=== PATIENT | male | born 1970 | race Caucasian/White ===

== ENCOUNTER 2016-11-16 14:31 | Observation (INO) | payer OTHER ==
[~2016-11-16] VITALS: Ht 170.2 cm; Wt 85.4 kg
--- NOTE | 2016-11-16 17:38 | ED NURSING NOTES ---
Clinical Report - Nurses [facility] [address] [place] [address] 11/16/2016 14:33 Patient: BRIANNA NEAL TRIAGE Triage time 1444. Acuity: LEVEL 3. Chief Complaint: ABDOMINAL PAIN and NAUSEA. Alert. VERTIO COMA SCORE: Verito Coma Scale: 15- eyes open spontaneously (4); best verbal response- oriented x 4 (5); best motor response- obeys commands (6). --14:56 Gretchen Alejandra R.N. 14:50 11/16/16. BP: 142/115. HR: 80. RR: 20. O2 saturation: 98%. Temp: 98.3 F. Pain level now 5/10. --14:56 Gretchen Alejandra R.N. Weight: 83.9 kg. Height/Length: 67 inches Per Patient. BMI: 29. --14:55 Gretchen Alejandra R.N. Medications None. --14:53 Gretchen Alejandra R.N. Allergies NKDA. --14:53 Gretchen Alejandra R.N. Medication/allergy information source: the patient and patient's family. --14:56 Gretchen Alejandra R.N. History Arrived by private vehicle. Historian: family. Accompanied by family. Primary physician (none). Onset. (Monday). ( Onset abd pain, N/V on Monday, pain and nausea cont. Last emesis 299. Same thing happens randomly over last year or two. Last BM small in a.m). Last oral intake by patient was (able to keep fluids down now). 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 SOCIAL HX: Recent travel in the last week- [facility] (1 ago). FALL RISK ASSESSMENT: Fall risk assessment completed. No fall risk identified. NUTRITIONAL RISK ASSESSMENT: The nutritional risk assessment revealed no deficiencies. FUNCTIONAL ASSESSMENT: Functional assessment: no impairments noted. LEARNING NEEDS ASSESSMENT: The learning needs assessment revealed no barriers. SKIN INTEGRITY ASSESSMENT: Skin integrity risk assessment completed. No skin integrity risk identified. --14:56 Gretchen Alejandra R.N. PAST MEDICAL HX: Immunizations: up-to-date. SOCIAL HX: Current every day light tobacco smoker- less than 1/2 a pack per day. Alcohol use. History of drug use: marijuana. No infectious disease exposure. ABUSE ASSESSMENT: No report of abuse. SELF HARM ASSESSMENT: A self harm assessment was performed. The patient answered "no" to the question "Do you have thoughts of harming or killing yourself?" and "Are you here because you tried to hurt yourself?". --15:05 Gretchen Alejandra R.N. PROBLEMS: Seasonal allergic rhinitis. --15:04 Gretchen Alejandra R.N. ADDITIONAL SURGERIES: Tonsillectomy. --14:53 Gretchen Alejandra R.N. Interventions ID band on patient. To treatment room. --14:56 Gretchen Alejandra R.N. PHYSICAL ASSESSMENT Ambulatory to room. GENERAL / NEURO / PSYCH: Alert. Oriented X 4. Appears anxious. RESPIRATORY: Respirations not labored. SKIN: Skin is warm and dry. --14:57 Gretchen Alejandra R.N. ( cramping, belching). GI / : The patient has had nausea. No abdominal tenderness. --15:02 Gretchen Alejandra R.N. NURSING PROGRESS NOTES 14:46 11/16/2016 Site #1 started via IV in the left antecubital space with an 20g angiocath, with aseptic technique and good blood return; one attempt. Blood drawn: rainbow set. Labeled in the presence of the patient and sent to the lab. Saline lock flushed with 10 mL saline. --14:56 Juma Rubi R.N. 14:51 11/16/2016 Started bag #1 1000 mL IV Fluids IV NS (Saline); at 1000 mL/hr over 1 hour(s) via site #1. Allergies verified and confirmed 5 rights. IV patency established. IV site checked: no pain, redness, or swelling. IV flushed thoroughly pre- and post-medication administration. Completed per protocol. --14:57 Juma Rubi R.N. 14:57 11/16/2016 Zofran (Ondansetron HCl) IVP 8 mg given over 3 minute(s) via site #1. Allergies verified and confirmed 5 rights. IV patency established. IV site checked: no pain, redness, or swelling. IV flushed thoroughly pre- and post-medication administration. IVP given by RN. --14:57 Juma Rubi R.N. Patient gowned. Head of bed elevated. Reassurance given. Two patient identifiers checked. Call light placed in reach. Side rails up x 2. Bed placed in lowest position. Brakes of bed on. Patient ready for evaluation- chart flagged. ED physician notified. --15:05 Gretchen Alejandra R.N. 15:57 11/16/2016 Dilaudid (HYDROmorphone HCl PF) IVP 1 mg given. via site #1. Allergies verified, confirmed 5 rights and sedative warning given to the patient. IV patency established. IV site checked: no pain, redness, or swelling. IV flushed thoroughly pre- and post-medication administration. IVP given by RN. --16:02 Gretchen Alejandra R.N. 16:30 11/16/16. --16:30 Juma Rubi R.N. 16:29 11/16/16. BP: 179/80. HR: 67. RR: 14. O2 saturation: 97% on room air. --16:30 Juma Rubi R.N. 16:30 11/16/16. ( US at bedside). --16:30 Juma Rubi R.N. 17:55 11/16/2016 Started bag #1 1000 mL IV Fluids IV NS (Saline); at 999 mL/hr via site #1 via IV pump. Allergies verified and confirmed 5 rights. IV patency established. IV site checked: no pain, redness, or swelling. IV flushed thoroughly pre- and post-medication administration. --17:55 Gretchen Alejandra R.N. 18:12 11/16/2016 PHENERGAN (Promethazine HCl) IVP 12.5 mg given. via site #1. Allergies verified and confirmed 5 rights. IV patency established. IV site checked: no pain, redness, or swelling. IV flushed thoroughly pre- and post-medication administration. IVP given by RN. --18:22 Gretchen Alejandra R.N. 18:17 11/16/2016 PROTONIX 40MG (Pantoprazole Sodium) IVP 40 mg given. via site #1. Allergies verified and confirmed 5 rights. IV patency established. IV site checked: no pain, redness, or swelling. IV flushed thoroughly pre- and post-medication administration. IVP given by RN. --18:22 Gretchen Alejandra R.N. 18:17 11/16/2016 GI COCKTAIL WHITE (Simethicone) PO 30 mL given. Allergies verified and confirmed 5 rights. (15 ml viscous lidocaine and 15 ml maalox). --18:28 Gretchen Alejandra R.N. 18:21 11/16/2016 Started 2 gm of CEFOTETAN IVPB in bag #1 50 mL; at 100 mL/hr via site #1 via IV pump. Allergies verified and confirmed 5 rights. IV patency established. IV site checked: no pain, redness, or swelling. IV flushed thoroughly pre- and post-medication administration. --18:21 Gretchen Alejandra R.N. 18:00 11/16/16. BP: 175/94 (regular adult cuff) taken on the left arm, while sitting. HR: 69. RR: 18. O2 saturation: 97%. Temp: 99.3 F. Pain level now: 3/10. 17:40 11/16/16. BP: 192/103. HR: 71. RR: 20. O2 saturation: 98%. 17:00 11/16/16. BP: 157/81. HR: 63. O2 saturation: 95%. 16:00 11/16/16. BP: 181/106. HR: 68. O2 saturation: 95%. 15:30 11/16/16. BP: 196/111. HR: 73. RR: 20. O2 saturation: 96%. 14:50 11/16/16. BP: 142/115. HR: 80. RR: 20. O2 saturation: 98%. Temp: 98.3 F. Pain level now 5/10. --18:36 Gretchen Alejandra R.N. 19:21 11/16/16. BP: 203/106. --19:30 Gretchen Alejandra R.N. ( reported rising blood pressure to ED MD, no orders given. Deferred to admit or surgeon. Patient asymptomatic with 3/10 pain.). --19:30 Gretchen Alejandra R.N. 18:55 11/16/2016 CEFOTETAN IVPB Discontinued: bag #1 completed upon admission. Total amount infused: 50 mL. IV patency established. IV site checked: no pain, redness, or swelling. IV flushed thoroughly. --19:35 Gretchen Alejandra R.N. 19:00 11/16/2016 IV Fluids IV NS Discontinued: bag #2 completed upon admission. Total amount infused: 1000 mL. IV patency established. IV site checked: no pain, redness, or swelling. IV flushed thoroughly. --19:34 Gretchen Alejandra R.N. 19:28 11/16/2016 IV Fluids IV NS Continued: upon admission at the rate of 0 mL/hr. 0 mL remaining bag #1. IV patency established. IV site checked: no pain, redness, or swelling. IV flushed thoroughly. --19:34 Gretchen Alejandra R.N. DISPOSITION / DISCHARGE Departure time: 1927. Admitted to Acute Care (1927). Transported via stretcher by Imindi. Report was given to a nurse. Report included patient's care, treatment, medications, reviewed medication reconcilliation, and condition (including any recent changes or anticipated changes). All questions were answered. Report was acknowledged and care was transferred. (Christal BURR). Patient's personal items include, belongings bad on stretcher with patient. --19:32 Gretchen Alejandra R.N. 19:28 11/16/16. BP: 203/106. HR: 76. RR: 18. O2 saturation: 94%. Temp: deferred. Pain level now: 07/22. --19:32 Gretchen Alejandra R.N. Locked/Released at 11/16/2016 19:36 by Gretchen Alejandra R.N.
--- NOTE | 2016-11-16 17:38 | ED ORDER SUMMARY ---
..... Patient: BRIANNA NEAL OrderSheet [facility] VisitID: [id number] [place] [address] 46y, M Registration Date/Time: 11/16/2016 ORDER SHEET Weight: 83.9 kg Allergies: NKDA GENERAL ORDERS: CBC w Diff Urgent (15:06 11/16/2016 LAbe R.N. per protocol) (Ack 15:07 Melvanandez) (16:29 JBoardley R.N.) CMP Urgent (15:11/16/2016 LAbe R.N. per protocol) (Ack 15:07 Melvanandez) (16:29 JBoardley R.N.) UA-Culture if indicated Urgent (15:06 11/16/2016 LAbe R.N. per protocol) (Ack 15:07 Khadar) (18:28 LAbe R.N.) Amylase Urgent (15:11/16/2016 LAbe R.N. per protocol) (Ack 15:07 Khadar) (16:29 JBoardley R.N.) Lipase Urgent (15:06 11/16/2016 LAbe R.N. per protocol) (Ack 15:07 Khadar) (16:29 JBoardley R.N.) US Abdomen Limited (Yes) Urgent (16:08 11/16/2016 Agnes HINKLE) (Ack 16:11 Khadar) (16:29 JBoardley R.N.) MEDICATION ORDERS: Phenergan IV 12.5 mg (HIGH ALERT MEDICATION, NOW) (17:41 11/16/2016 Agnes HINKLE) (18:22 LAbe R.N.) GI Cocktail WHITE PO 30 mL with Lidocaine Viscous Mouth/Throat 15 mL, Maalox Plus Oral 15 mL (17:49 11/16/2016 Agnes HINKLE) (18:28 LAbe R.N.) IV FLUIDS: IV NS : initial bolus 1000 mL (1000 mL/hr), then none - (NOW) (14:55 11/16/2016 Agnes HINKLE) (14:57 JBoardley R.N.) Zofran IV 8 mg (NOW) (14:55 11/16/2016 Agnes HINKLE) (14:57 JBoardley R.NCheryl) Dilaudid IV 1 mg (HIGH ALERT MEDICATION, NOW) (15:51 11/16/2016 Agnes HINKLE) (Ack 15:53 LAbe R.N.) (16:02 LAbe R.N.) Cefotetan IV 2 gm (NOW) (17:38 11/16/2016 Agnes HINKLE) (18:21 LAbe R.N.) Protonix IVP 40mg 40 mg (Mix in NS 10ml over 2min) (17:41 11/16/2016 Agnes HINKLE) (18:22 LAbe R.N.) IV NS : initial bolus 1000 mL (1000 mL/hr), then none - (NOW) (17:49 11/16/2016 Agnes HINKLE) (17:55 LAbe R.N.) ORDER SHEET NOTES: [Electronically signed by Gretchen Alejandra R.N. (19:36 11/16/2016)] [Electronically signed by June Harris MD (04:37 11/18/2016)] [Electronically locked/signed by Gretchen Alejandra R.N. (19:36 11/16/2016)]
--- NOTE | 2016-11-16 17:38 | ED ORDER SUMMARY ---
..... Patient: BRIANNA NEAL OrderSheet [facility] VisitID: [id number] [place] [address] 46y, M Registration Date/Time: 11/16/2016 ORDER SHEET Weight: 83.9 kg Allergies: NKDA GENERAL ORDERS: CBC w Diff Urgent (15:06 11/16/2016 LAbe R.N. per protocol) (Ack 15:07 Melvanandez) (16:29 JBoardley R.N.) CMP Urgent (15:11/16/2016 LAbe R.N. per protocol) (Ack 15:07 Melvanandez) (16:29 JBoardley R.N.) UA-Culture if indicated Urgent (15:06 11/16/2016 LAbe R.N. per protocol) (Ack 15:07 Khadar) (18:28 LAbe R.N.) Amylase Urgent (15:11/16/2016 LAbe R.N. per protocol) (Ack 15:07 Khadar) (16:29 JBoardley R.N.) Lipase Urgent (15:06 11/16/2016 LAbe R.N. per protocol) (Ack 15:07 Khadar) (16:29 JBoardley R.N.) US Abdomen Limited (Yes) Urgent (16:08 11/16/2016 Agnes HINKLE) (Ack 16:11 Khadar) (16:29 JBoardley R.N.) MEDICATION ORDERS: Phenergan IV 12.5 mg (HIGH ALERT MEDICATION, NOW) (17:41 11/16/2016 Agnes HINKLE) (18:22 LAbe R.N.) GI Cocktail WHITE PO 30 mL with Lidocaine Viscous Mouth/Throat 15 mL, Maalox Plus Oral 15 mL (17:49 11/16/2016 Agnes HINKLE) (18:28 LAbe R.N.) IV FLUIDS: IV NS : initial bolus 1000 mL (1000 mL/hr), then none - (NOW) (14:55 11/16/2016 Agnes HINKLE) (14:57 JBoardley R.N.) Zofran IV 8 mg (NOW) (14:55 11/16/2016 Agnes HINKLE) (14:57 JBoardley R.NCheryl) Dilaudid IV 1 mg (HIGH ALERT MEDICATION, NOW) (15:51 11/16/2016 Agnes HINKLE) (Ack 15:53 LAbe R.N.) (16:02 LAbe R.N.) Cefotetan IV 2 gm (NOW) (17:38 11/16/2016 Agnes HINKLE) (18:21 LAbe R.N.) Protonix IVP 40mg 40 mg (Mix in NS 10ml over 2min) (17:41 11/16/2016 Agnes HINKLE) (18:22 LAbe R.N.) IV NS : initial bolus 1000 mL (1000 mL/hr), then none - (NOW) (17:49 11/16/2016 Agnes HINKLE) (17:55 LAbe R.N.) ORDER SHEET NOTES: [Electronically signed by Gretchen Alejandra R.N. (19:36 11/16/2016)] [Electronically signed by June Harris MD (04:37 11/18/2016)] [Electronically locked/signed by Gretchen Alejandra R.N. (19:36 11/16/2016)]
--- NOTE | 2016-11-16 17:38 | ED CLINICAL REPORT ---
Clinical Report - Physicians/Mid Levels [facility] [address] [address] 11/16/2016 14:33 Patient: BRIANNA NEAL Time Seen: 14:40. Arrived- By private vehicle. Historian- patient. HISTORY OF PRESENT ILLNESS Chief Complaint: VOMITING. ABDOMINAL CRAMPS. This started about 2 days ago and is still present. No recent travel. He has had nausea and moderate abdominal pain. The pain is described as located in the upper abdomen. He has had vomiting (last vomiting was yesterday). No constipation, flank pain, history of possible bad food exposure or known contact with a sick individual. Has not recently been camping or on antibiotics. The illness is described as moderate. Similar symptoms previously: ( Patient states he's been having symptoms like this for the past 17 years; however it was usually once a year but now it has been about every 3 months for the past year. Patient has no family history of gallbladder disease, and no personal history of peptic ulcer disease.). Recent medical care: Not recently seen/assessed. REVIEW OF SYSTEMS No fever, muscle aches, difficulty with urination, dark urine or headache. No dizziness, sore throat, cough, chest pain or difficulty breathing. No excessive urination, skin rash, jaundice, back pain or fainting episodes. No blurred vision. All systems otherwise negative, except as recorded above. PAST HISTORY Problems: Seasonal allergic rhinitis. Additional Surgeries: Tonsillectomy. Medications: None. Allergies: NKDA. SOCIAL HISTORY Never smoker. No alcohol use or drug use. ADDITIONAL NOTES The nursing notes have been reviewed. PHYSICAL EXAM Vital Signs: 11/16/2016 14:50 BP: 142/115. HR: 80. RR: 20. O2 saturation: 98%. Temp: 98.3 F. Have been reviewed. Appearance: Alert. Oriented X3. No acute distress. (Patient appears mildly uncomfortable.). Eyes: Pupils equal, round and reactive to light. Eyes normal inspection. ENT: Nose normal. Neck: Normal inspection. CVS: Normal heart rate and rhythm. Heart sounds normal. Pulses normal. Respiratory: No respiratory distress. Breath sounds normal. Abdomen: Soft. Mild tenderness in the upper abdomen. No guarding or rebound tenderness. Back: Normal inspection. No CVA tenderness. Skin: Skin warm and dry. Normal skin color. No rash. Normal skin turgor. Extremities: Extremities exhibit normal ROM. No lower extremity edema. Neuro: No motor deficit. No sensory deficit. (Grossly intact.). LABS, X-RAYS, AND EKG Abdominal Sonogram: Gallstones are present. Gallbladder wall thickening is present. Pericholecystic fluid is present. Normal liver. No free fluid. The study was independently viewed by me, interpreted contemporaneously by me, discussed with the radiologist and limited due to artifact. Study included the gallbladder and upper abdomen. Prior studies were not available for comparison. Laboratory Tests: CBC w Diff: (CONNOR: 11/16/2016 14:45) ( [facility] [place]) Final results Test Result Flag Units (Reference) WHITE BLOOD COUNT 16.5 H K/uL (4.5-11.5) RED BLOOD COUNT 5.73 M/uL (4.50-5.90) HEMOGLOBIN 17.7 H gm/dL (13.5-17.5) HEMATOCRIT 52.0 % (41.0-53.0) MEAN CELL VOLUME 91 fL (80-100) MEAN CORPUSCULAR HGB 31 pg (26-34) MEAN CORPUSCULAR HGB CONC 34 g/dL (31-37) RED CELL DISTRIBUTION WIDTH 12.6 % (11.6-14.8) PLATELET COUNT 226 K/uL (150-400) NEUTROPHIL % 89.2 H % (50-75) LYMPH % 8.3 L % (25-40) MONO % 2.3 L % (3-14) EOSINOPHIL % 0 % (0-4) BASOPHIL % 0.2 % (0-2) CMP: (CONNOR: 11/16/2016 14:45) ( MsgRcvd 11/16/2016 15:56) Final results Test Result Flag Units (Reference) GLUCOSE 137 H mg/dL (70-110) BUN 25 H mg/dL (7-18) CREATININE 1.2 mg/dL (0.6-1.3) Estimated GFR >60 mL/min Estimated GFR- >60 mL/min Note: Persistent reduction over 3 months in eGFR<60 mL/min/1.73 m2 defines CKD. Patients with eGFR values>=60 mL/min/1.73 m2 may also have CKD if evidence ofpersistent proteinuria. Additional information may be foundat www.kidney.org. SODIUM 141 mmol/L (136-145) POTASSIUM 3.7 mmol/L (3.5-5.1) CHLORIDE 101 mmol/L (98-107) CARBON DIOXIDE 25 mmol/L (21-32) CALCIUM 10.7 H mg/dL (8.5-10.1) TOTAL PROTEIN 8.5 H g/dL (6.4-8.2) ALBUMIN 5.1 H g/dL (3.3-5.0) BILIRUBIN, TOTAL 2.9 H mg/dL (0.0-1.0) ALKALINE PHOSPHATASE 66 U/L (46-116) AST (SGOT) 42 H U/L (15-37) ALT (SGPT) 46 U/L (12-78) LIPASE 119 U/L (73-393) AMYLASE 34 U/L (25-115) . Pulse Oximetry: 11/16/2016 14:50 O2 saturation: 98%. (FIO2 - room air). Interpretation: normal. PROGRESS AND PROCEDURES Course of Care: Patient was treated symptomatically for his pain and nausea with IV fluids, Zofran, and Dilaudid. He was worked up with labs which showed a leukocytosis and an elevated AST, and an ultrasound. Ultrasound did show cholecystitis. Patient was started on cefotetan IV for this and I did admit him to the surgical service. Discussed case with on-call health care provider, (Sherri/surgery). Reviewed test results and need for additional work-up. Agreed upon treatment plan and decision to admit. Health care provider will see patient in ED. Refers case to other health care provider. Patient and spouse counseled in person several times regarding the patient's stable condition, test results, diagnosis and need for follow-up. Concerns were addressed. Old medical records reviewed. Disposition: Admitted to Acute Care. Condition: stable and serious. CLINICAL IMPRESSION Acute cholecystitis with cholelithiasis. No obstruction or choledocholithiasis. (Electronically signed by June Harris MD 11/18/2016 4:37)
--- NOTE | 2016-11-16 18:08 | DIAGNOSTIC IMAGING REPORT ---
PROCEDURE: US ABDOMEN ULTRASOUND-LIMITED INDICATION: RUQ PAIN TECHNIQUE: Carcamo scale and color Doppler sonographic images of the abdomen were obtained. COMPARISON: None. FINDINGS: Multiple small mobile gallstones and sludge, thickened gallbladder wall (4.6 mm) and positive Boykin's sign. Normal CBD measures 4.3 mm. Normal liver. Visualized pancreas is unremarkable. Aorta and IVC are patent. Normal hepatopetal flow. Normal right kidney measures 11.3 cm. IMPRESSION: 1. Cholelithiasis with findings suggestive of acute cholecystitis
[2016-11-16 19:42] VITALS: BP 181/110
--- NOTE | 2016-11-16 20:03 | NUR ---
PT ARRIVED TO FLOOR VIA GURNEY, PUT OWN SOCKS ON AND AMBULATED TO BED WITHOUT ISSUE. PAIN 5/10 AND THIS RN ADMIN 1MG DILAUDID. DENIED NAUSEA. BT HYPOACTIVE, NO SOB. ELEVATED BP 181/110 AND ASYMPTOMATIC. WILL TAKE AGAIN IN 15 MIN POST PAIN ADVISOR TO COMMAND IN COMBAT. CALLED MD ROSARIO TO NOTIFY, ALSO TO ASK FOR ORDERS. PT FELL ASLEEP PRIOR TO LEAVING ROOM. ALISIA.
[2016-11-16 21:32] VITALS: BP 141/76
--- NOTE | 2016-11-16 23:06 | NUR ---
PT IS STILL SLEEPING AND DENIES PAIN. BP IS WNL AND NO ATENOLOL GIVEN. WCTM.
[2016-11-17 00:19] VITALS: BP 147/94
--- NOTE | 2016-11-17 00:33 | NUR ---
Pt. is resting in bed at this time. States abdominal pain is 1/10, declines the need for pain medication at this time. Denies nausea. Resting comfortably at this time. Able to make needs known. Call light within reach. TM.
[2016-11-17 05:40] VITALS: BP 133/83
[2016-11-17 09:52] VITALS: BP 140/94
[2016-11-17 12:10] VITALS: BP 131/85
--- NOTE | 2016-11-17 16:32 | DIAGNOSTIC IMAGING REPORT ---
PROCEDURE: XR INTRAOPERATIVE LAP KARMEN INDICATION: LAP KARMEN WITH IOC TECHNIQUE: Intraoperative fluoroscopy provided for Dr. Polanco performing an intraoperative cholangiogram following cholecystectomy. Total fluoroscopy time 1 minute 9 seconds Cumulative dose 29.2 mGy. COMPARISON: None. FINDINGS: Three intraoperative fluoroscopic spot images of the right upper quadrant of the abdomen demonstrate cannulation of the cystic duct stump and opacification of the extrahepatic common duct with opacification of second portion of the duodenum. Distal common duct was not imaged in this study. IMPRESSION: 1. Partial visualization of distal biliary tree. 2. No filling defects visible in the visualized portion of common duct. 3. Good opacification of the second portion of the duodenum.
[2016-11-17] MEDS ORDERED: NORCO1 TA1 PO (16:33)
--- NOTE | 2016-11-17 16:33 | Provider's Discharge Care Plan ---
Problem, Goal, Plan Problem List 1. Acute cholecystitis
--- NOTE | 2016-11-17 16:33 | Provider's Discharge Care Plan ---
Problem, Goal, Plan Problem List 1. Acute cholecystitis
--- NOTE | 2016-11-17 17:14 | NUR ---
1700HRS ASSUMED CARE FROM AMINAH DELONG. PAIN AWAKE AND ALERT. SITTING UP AT 45 DEGREES. REPORTS PAIN TO BE MODERATE; PAIN MED GIVEN
--- NOTE | 2016-11-17 17:25 | NUR ---
CURRENTLY PATIENT IS IN PACU, RECOVERING FROM A LAP KARMEN. HE WILL D/C TONIGHT AFTER HE RECOVERS FROM THE SURGERY.
[2016-11-17 17:59] VITALS: BP 157/88
[2016-11-17 18:17] VITALS: BP 159/93
--- NOTE | 2016-11-18 04:37 | ED MAR SUMMARY ---
..... Medication Administration Record [facility] [address] [place] [address] Patient: BRIANNA NEAL Visit ID: [id number] 46y, M Weight: 83.9 kg Height/Length: 67 in BMI: 29 ALLERGIES: NKDA Start 14:51 11/16/2016 Juma Rubi R.N., Continued Upon Admission 19:28 11/16/2016 Gretchen Alejandra R.N. Medication Administered: IV NS (SALINE), Dose: IV Fluids over 1 hour(s), Rate: 1000 mL/hr, Dispensed: 1000 mL bag, Site: #1 left AC. Medication Ordered: IV NS : initial bolus 1000 mL (1000 mL/hr), then none - (NOW). Given 14:57 11/16/2016 Juma Rubi R.N. Medication Administered: ZOFRAN [IVP] (ONDANSETRON HCL), Dose: 8 mg IVP over 3 minute(s), Site: #1 left AC. Medication Ordered: Zofran IV 8 mg (NOW). Given 15:57 11/16/2016 Gretchen Alejandra R.N. Medication Administered: DILAUDID [IVP] (HYDROMORPHONE HCL PF), Dose: 1 mg IVP, Site: #1 left AC. Medication Ordered: Dilaudid IV 1 mg (HIGH ALERT MEDICATION, NOW). Start 17:55 11/16/2016 Gretchen Alejandra R.N., Stop 19:00 11/16/2016 Gretchen Alejandra R.N. Medication Administered: IV NS (SALINE), Dose: IV Fluids, Rate: 999 mL/hr, Dispensed: 1000 mL bag, Site: #1 left AC. Medication Ordered: IV NS : initial bolus 1000 mL (1000 mL/hr), then none - (NOW). Given 18:12 11/16/2016 Gretchen Alejandra R.N. Medication Administered: PHENERGAN [IVP] (PROMETHAZINE HCL), Dose: 12.5 mg IVP, Site: #1 left AC. Medication Ordered: Phenergan IV 12.5 mg (HIGH ALERT MEDICATION, NOW). Given 18:17 11/16/2016 Gretchen Alejandra R.N. Medication Administered: GI COCKTAIL WHITE [PO] (SIMETHICONE), Dose: 30 mL PO. Medication Ordered: GI Cocktail WHITE PO 30 mL with Lidocaine Viscous Mouth/Throat 15 mL, Maalox Plus Oral 15 mL. Given 18:17 11/16/2016 Gretchen Alejandra R.N. Medication Administered: PROTONIX 40MG [IVP] (PANTOPRAZOLE SODIUM), Dose: 40 mg IVP, Site: #1 left AC. Medication Ordered: Protonix IVP 40mg 40 mg (Mix in NS 10ml over 2min). Start 18:21 11/16/2016 Gretchen Alejandra R.N., Stop 18:55 11/16/2016 Gretchen Alejandra R.N. Medication Administered: CEFOTETAN [IVPB], Dose: 2 gm IVPB, Rate: 100 mL/hr, Dispensed: 50 mL bag, Site: #1 left AC. Medication Ordered: Cefotetan IV 2 gm (NOW).
--- NOTE | 2016-11-18 04:37 | ED DISCHARGE INSTRUCTIONS ---
Patient: BRIANNA NEAL General Instructions [facility] VisitID: [id number] [address] [place] [address] 46y, M Registration Date/Time: 11/16/2016 Acute cholecystitis with cholelithiasis. No obstruction or choledocholithiasis. (Electronically signed by June Harris MD 11/18/2016 4:37)
--- NOTE | 2016-11-18 04:37 | ED DISCHARGE INSTRUCTIONS ---
Patient: BRIANNA NEAL General Instructions [facility] VisitID: [id number] [address] [place] [address] 46y, M Registration Date/Time: 11/16/2016 Acute cholecystitis with cholelithiasis. No obstruction or choledocholithiasis. (Electronically signed by June Harris MD 11/18/2016 4:37)
--- NOTE | 2016-11-18 04:37 | ED MED RECONCILIATION SUMMARY ---
Patient: BRIANNA NEAL Medication Reconciliation Report [facility] VisitID: [id number] [address] [place] [address] 46y, M Registration Date/Time: 11/16/2016 Weight: 83.9 kg Height/Length: 67 in. BMI: 29.0 ALLERGIES: NKDA The patient's Home Medications are listed below: NONE. The source(s) of the original Home Medication information: patient patient's family member The following Medications were given to the patient in the Emergency Department: IV NS IV Fluids bolus 0, then 1000 mL/hr, administered: 11/16/2016 2:51:00 PM Zofran [IVP] IVP 8 mg, administered: 11/16/2016 2:57:00 PM Dilaudid [IVP] IVP 1 mg, administered: 11/16/2016 3:57:00 PM IV NS IV Fluids bolus 0, then 999 mL/hr, administered: 11/16/2016 5:55:00 PM CEFOTETAN [IVPB] IVPB bolus 0, then 2 gm 100 mL/hr, administered: 11/16/2016 6:21:00 PM PROTONIX 40MG [IVP] IVP 40 mg, administered: 11/16/2016 6:17:00 PM PHENERGAN [IVP] IVP 12.5 mg, administered: 11/16/2016 6:12:00 PM GI COCKTAIL WHITE [PO] PO 30 mL, administered: 11/16/2016 6:17:00 PM The following Medications were prescribed to the patient: None.
--- NOTE | 2016-11-18 04:37 | ED MED RECONCILIATION SUMMARY ---
Patient: BRIANNA NEAL Medication Reconciliation Report [facility] VisitID: [id number] [address] [place] [address] 46y, M Registration Date/Time: 11/16/2016 Weight: 83.9 kg Height/Length: 67 in. BMI: 29.0 ALLERGIES: NKDA The patient's Home Medications are listed below: NONE. The source(s) of the original Home Medication information: patient patient's family member The following Medications were given to the patient in the Emergency Department: IV NS IV Fluids bolus 0, then 1000 mL/hr, administered: 11/16/2016 2:51:00 PM Zofran [IVP] IVP 8 mg, administered: 11/16/2016 2:57:00 PM Dilaudid [IVP] IVP 1 mg, administered: 11/16/2016 3:57:00 PM IV NS IV Fluids bolus 0, then 999 mL/hr, administered: 11/16/2016 5:55:00 PM CEFOTETAN [IVPB] IVPB bolus 0, then 2 gm 100 mL/hr, administered: 11/16/2016 6:21:00 PM PROTONIX 40MG [IVP] IVP 40 mg, administered: 11/16/2016 6:17:00 PM PHENERGAN [IVP] IVP 12.5 mg, administered: 11/16/2016 6:12:00 PM GI COCKTAIL WHITE [PO] PO 30 mL, administered: 11/16/2016 6:17:00 PM The following Medications were prescribed to the patient: None.
--- NOTE | 2016-11-18 04:37 | ED MAR SUMMARY ---
..... Medication Administration Record [facility] [address] [place] [address] Patient: BRIANNA NEAL Visit ID: [id number] 46y, M Weight: 83.9 kg Height/Length: 67 in BMI: 29 ALLERGIES: NKDA Start 14:51 11/16/2016 Juma Rubi R.N., Continued Upon Admission 19:28 11/16/2016 Gretchen Alejandra R.N. Medication Administered: IV NS (SALINE), Dose: IV Fluids over 1 hour(s), Rate: 1000 mL/hr, Dispensed: 1000 mL bag, Site: #1 left AC. Medication Ordered: IV NS : initial bolus 1000 mL (1000 mL/hr), then none - (NOW). Given 14:57 11/16/2016 Juma Rubi R.N. Medication Administered: ZOFRAN [IVP] (ONDANSETRON HCL), Dose: 8 mg IVP over 3 minute(s), Site: #1 left AC. Medication Ordered: Zofran IV 8 mg (NOW). Given 15:57 11/16/2016 Gretchne Alejandra R.N. Medication Administered: DILAUDID [IVP] (HYDROMORPHONE HCL PF), Dose: 1 mg IVP, Site: #1 left AC. Medication Ordered: Dilaudid IV 1 mg (HIGH ALERT MEDICATION, NOW). Start 17:55 11/16/2016 Gretchen Alejandra R.N., Stop 19:00 11/16/2016 Gretchen Alejandra R.N. Medication Administered: IV NS (SALINE), Dose: IV Fluids, Rate: 999 mL/hr, Dispensed: 1000 mL bag, Site: #1 left AC. Medication Ordered: IV NS : initial bolus 1000 mL (1000 mL/hr), then none - (NOW). Given 18:12 11/16/2016 Gretchen Alejandra R.N. Medication Administered: PHENERGAN [IVP] (PROMETHAZINE HCL), Dose: 12.5 mg IVP, Site: #1 left AC. Medication Ordered: Phenergan IV 12.5 mg (HIGH ALERT MEDICATION, NOW). Given 18:17 11/16/2016 Gretchen Alejandra R.N. Medication Administered: GI COCKTAIL WHITE [PO] (SIMETHICONE), Dose: 30 mL PO. Medication Ordered: GI Cocktail WHITE PO 30 mL with Lidocaine Viscous Mouth/Throat 15 mL, Maalox Plus Oral 15 mL. Given 18:17 11/16/2016 Gretchen Alejandra R.N. Medication Administered: PROTONIX 40MG [IVP] (PANTOPRAZOLE SODIUM), Dose: 40 mg IVP, Site: #1 left AC. Medication Ordered: Protonix IVP 40mg 40 mg (Mix in NS 10ml over 2min). Start 18:21 11/16/2016 Gretchen Alejandra R.N., Stop 18:55 11/16/2016 Gretchen Alejandra R.N. Medication Administered: CEFOTETAN [IVPB], Dose: 2 gm IVPB, Rate: 100 mL/hr, Dispensed: 50 mL bag, Site: #1 left AC. Medication Ordered: Cefotetan IV 2 gm (NOW).
[2016-11-30] MEDS ORDERED: TYLENOL325 MG PO (21:55)
[2016-12-02] MEDS ORDERED: HYCET1 ML PO (06:47)
== END 2016-11-17 18:50 | disposition home or self-care (01) ==
LOC: ED SRH 14:31 → TRANS SRH 18:03 → ACUTE2 SRH 19:35
PROVIDERS: Surgery; ADMIT Emergency Medicine
PROC: BF101ZZ Fluoroscopy of Bile Ducts using Low Osmolar Contrast (ICD-10-PCS; principal; 2016-11-17 13:45)
PROC: 0FT44ZZ Resection of Gallbladder, Percutaneous Endoscopic Approach (ICD-10-PCS; principal; 2016-11-17 13:45)
DX: K80.00 Calculus of gallbladder with acute cholecystitis without obstruction (principal); R11.2 Nausea with vomiting, unspecified; F17.210 Nicotine dependence, cigarettes, uncomplicated
CPT/HCPCS: 29229; 29230; 29250; 29259; 29264; 50002; 60001; 70002; 80102; 80212; 80248; 82332; 82790; 82794; 82807; 83339; 83348; 83587; 83920; 83937; 83982; 84038; 90004; 90074; 90100; 90469; 92235; 92520; 92530; 92540; 95059

== ENCOUNTER 2016-11-18 18:15 | Emergency (ER) | payer OTHER ==
[~2016-11-18 18:15] MED LIST: NORCO1 TA1 PO
--- NOTE | 2016-11-18 20:04 | DIAGNOSTIC IMAGING REPORT ---
PROCEDURE: CT ABD/PELVIS WITH CONTRAST INDICATION: Nausea. Vomiting. 1 day post cholecystectomy. Elevated white blood count (13,900). TECHNIQUE: 125 ml of Isovue 300 were injected intravenously and axial images were obtained of the entire abdomen and pelvis with sagittal and coronal reformations. COMPARISON: Comparison is made intraoperative cholangiogram (11/17/2016) and abdominal ultrasound (11/16/2016). FINDINGS: ABDOMEN: Cholecystectomy (surgical clips) with a small amount of air fluid in the gallbladder fossa. Small amount of free intra-abdominal air. There is residual gastrointestinal contrast in the colon from prior intraoperative cholangiogram. Moderate fluid distention of ingested material in the stomach. Moderate mucosal thickening of the distal esophagus. Bowel pattern is otherwise normal, including appendix. Liver, spleen, pancreas, kidneys, and aorta are normal. Mild to moderate degenerate changes of the lower lumbar spine. PELVIS: Mild enlargement prostate (4.8 cm) with central dystrophic calcifications. Pelvic structures are otherwise normal. No evidence of free fluid. IMPRESSION: 1. Status post cholecystectomy with normal postoperative appearance. 2. Moderate ingested material/fluid in the stomach. 3. Moderate mucosal thickening of the distal esophagus. Consider reflux esophagitis. 4. Mild enlargement prostate (4.8 cm). 5. Otherwise negative CT abdomen and pelvis. 6. Findings discussed with Dr. Fernando Shah. All CT scans at this facility use dose modulation, iterative reconstruction, and/or weight-based dosing when appropriate to reduce radiation dose to as low as reasonably achievable.
--- NOTE | 2016-11-18 21:08 | ED ORDER SUMMARY ---
..... Patient: BRIANNA NEAL OrderSheet [facility] VisitID: [id number] [place] [address] 46y, M Registration Date/Time: 11/18/2016 ORDER SHEET Weight: 85.2 kg (stated) Allergies: None GENERAL ORDERS: CBC w Diff Urgent (18:29 11/18/2016 KKnebel R.N. per protocol) (Ack 18:33 KHoerner) (18:44 KKnebel R.N.) CMP Urgent (18:29 11/18/2016 KKnebel R.N. per protocol) (Ack 18:33 KHoerner) (18:44 KKnebel R.N.) UA-Culture if indicated Urgent (18:29 11/18/2016 KKnebel R.N. per protocol) (Ack 18:33 KHoerner) (19:04 KKnebel R.N.) Vitals (18:29 11/18/2016 KKnebel R.N. per protocol) (18:44 KKnebel R.N.) NPO (18:29 11/18/2016 KKnebel R.N. per protocol) (18:44 KKnebel R.N.) Lipase Urgent (18:33 11/18/2016 Mulugeta White) (Ack 18:34 KHoerner) (18:44 KKnebel R.N.) CT Abd/Pel w Cont (No) (N/A) Urgent (18:46 11/18/2016 Mulugeta White) (Ack 18:50 AGUILAoecasandraner) (19:40 MCampbell) MEDICATION ORDERS: GI Cocktail WHITE PO 30 mL (NOW) (20:27 11/18/2016 Mulugeta White) (Ack 20:55 JQuiveluis R.N.) Pepcid PO 20 mg (NOW) (21:09 11/18/2016 Mulugeta White) (21:36 KKnebel R.N.) Potassium Chloride PO 20 meq (NOW) (21:09 11/18/2016 Mulugeta White) (21:36 KKnebel R.N.) IV FLUIDS: IV NS with Normal Saline 1 Liter: initial bolus 1000 mL (1000 mL/hr), then 1000 mL/hr for X1 (NOW) (18:28 11/18/2016 KKnebel R.N. per protocol) (18:44 KKnebel R.N.) Ondansetron IV 4 mg (NOW) (18:29 11/18/2016 KKnebel R.N. per protocol) (18:44 KKnebel R.N.) IV Saline Lock (18:29 11/18/2016 KKnebel R.N. per protocol) (18:43 KKnebel R.N.) Reglan IV 10 mg (NOW) (18:58 11/18/2016 Mulugeta White) (19:04 KKnebel R.N.) Zofran IV 4 mg (NOW) (20:27 11/18/2016 Mulugeta White) (20:31 KKnebel R.N.) Morphine IV 4 mg (back logged for about 20:20) (20:27 11/18/2016 Mulugeta White) (20:32 MONIQUEnebel R.N.) Azithromycin IV 500 mg/250 mL (NOW) (21:11/18/2016 Mulugeta White) (Cancelled: Other21:02 Mulugeta White) Ceftriaxone IV 2 gm/50mL (NOW) (21:11/18/2016 Mulugeta White) (Cancelled: Other21:02 Mulugeta White) ORDER SHEET NOTES: [Electronically signed by Fernando Shah Dr. (21:55 11/18/2016)] [Electronically signed by Xochilt Johnson R.N. (23:47 11/18/2016)] [Electronically locked/signed by Xochilt Johnson R.N. (23:47 11/18/2016)]
--- NOTE | 2016-11-18 21:08 | ED CLINICAL REPORT ---
Clinical Report - Physicians/Mid Levels [facility] [address] [place] [place] [address] 11/18/2016 18:15 Patient: BRIANNA NEAL Time Seen: 1829; initial patient contact. Arrived- By private vehicle. Historian- patient. HISTORY OF PRESENT ILLNESS Chief Complaint: VOMITING. This started today and is still present. It was abrupt in onset and has been constant but is not gone now. No recent travel. He has had nausea and vomiting. No constipation, flank pain, history of possible bad food exposure or known contact with a sick individual. Has not recently been camping or on antibiotics. The illness is described as severe. (recent surgery. had GB removed yesterday by Dr. Polanco. States he was doing well. Reports passing gas.). Similar symptoms previously: None. Recent medical care: The patient was seen recently and hospitalized. REVIEW OF SYSTEMS No fever, chest pain, difficulty breathing or skin rash. All systems otherwise negative, except as recorded above. PAST HISTORY See nurses notes. Medications: Vicodin Oral. Allergies: None. SOCIAL HISTORY Smoker- current status unknown. Alcohol use. History of occasional drug use: marijuana. No recent travel. Is a local resident. ADDITIONAL NOTES The nursing notes have been reviewed. PHYSICAL EXAM Vital Signs: 11/18/2016 18:29 BP: 173/108. HR: 62. RR: 16. O2 saturation: 100%. Temp: 97.9 F. Pain level now: 05/24. Hypertensive. Oxygen saturation normal. Appearance: Alert. Oriented X3. Patient in mild distress. (non-toxic appearing). Eyes: Pupils equal, round and reactive to light. Eyes normal inspection. No pale conjunctivae or scleral icterus. ENT: Ears normal. Nose normal. Pharynx normal. Neck: Normal inspection. Neck supple. CVS: Normal heart rate and rhythm. Heart sounds normal. Pulses normal. Respiratory: No respiratory distress. Breath sounds normal. No rales, rhonchi or wheezes. Abdomen: Soft. (appropriately tender for recent surgery. wounds are c/d/i. no masses. no distention.). Skin: Skin warm and dry. Normal skin color. No rash. Normal skin turgor. Extremities: Extremities exhibit normal ROM. No lower extremity edema. Neuro: Oriented X 3. No motor deficit. No sensory deficit. LABS, X-RAYS, AND EKG Abdominal CT: PROCEDURE: CT ABD/PELVIS WITH CONTRAST INDICATION: Nausea. Vomiting. 1 day post cholecystectomy. Elevated white blood count (13,900). TECHNIQUE: 125 ml of Isovue 300 were injected intravenously and axial images were obtained of the entire abdomen and pelvis with sagittal and coronal reformations. COMPARISON: Comparison is made intraoperative cholangiogram (11/17/2016) and abdominal ultrasound (11/16/2016). FINDINGS: ABDOMEN: Cholecystectomy (surgical clips) with a small amount of air fluid in the gallbladder fossa. Small amount of free intra-abdominal air. There is residual gastrointestinal contrast in the colon from prior intraoperative cholangiogram. Moderate fluid distention of ingested material in the stomach. Moderate mucosal thickening of the distal esophagus. Bowel pattern is otherwise normal, including appendix. Liver, spleen, pancreas, kidneys, and aorta are normal. Mild to moderate degenerate changes of the lower lumbar spine. PELVIS: Mild enlargement prostate (4.8 cm) with central dystrophic calcifications. Pelvic structures are otherwise normal. No evidence of free fluid. IMPRESSION: 1. Status post cholecystectomy with normal postoperative appearance. 2. Moderate ingested material/fluid in the stomach. 3. Moderate mucosal thickening of the distal esophagus. Consider reflux esophagitis. 4. Mild enlargement prostate (4.8 cm). 5. Otherwise negative CT abdomen and pelvis. The study was independently viewed by me and interpreted by the radiologist. The study was discussed with the radiologist (via phone and pacs). Laboratory Tests: UA-Culture if indicated: (CONNOR: 11/18/2016 19:00) ( MsgRcvd 11/18/2016 19:21) Final results Test Result Flag Units (Reference) URINE COLOR YELLOW URINE APPEARANCE SL CLOUDY URINE GLUCOSE NEGATIVE (NEGATIVE) URINE BILIRUBIN NEGATIVE (NEGATIVE) URINE KETONE TRACE (NEGATIVE) URINE SPECIFIC GRAVITY 1.020 (1.010-1.030) URINE PH 7.5 (5.0-8.0) URINE PROTEIN NEGATIVE (NEGATIVE) URINE UROBILINOGEN 0.2 EU/dL (0.2-1.0) URINE NITRITE NEGATIVE (NEGATIVE) URINE BLOOD TRACE-INTACT (NEGATIVE) URINE LEUK ESTERASE NEGATIVE (NEGATIVE) URINE RBC 0-1 rbc/hpf (0-1) URINE WBC RARE wbc/hpf (0-1) URINE EPITHELIAL CELLS RARE EPI/hpf (0-5) URINE BACTERIA NONE SEEN (NONE SEEN) URINE COMMENT CULT NOT INDICATED 1+ AMORPHOUSURINE CULTURES ARE SET-UP BASED ON THE FOLLOWING CRITERIA:POSITIVE NITRITEPOSITIVE LEUKOCYTE ESTERASEGREATER THAN 10 WHITE BLOOD CELLSMODERATE (2+) OR GREATER BACTERIA CBC w Diff: (CONNOR: 11/18/2016 18:40) ( [facility] [place] 11/18/[place] 19:13) Final results Test Result Flag Units (Reference) WHITE BLOOD COUNT 13.9 H K/uL (4.5-11.5) RED BLOOD COUNT 5.13 M/uL (4.50-5.90) HEMOGLOBIN 15.9 gm/dL (13.5-17.5) HEMATOCRIT 46.8 % (41.0-53.0) MEAN CELL VOLUME 91 fL (80-100) MEAN CORPUSCULAR HGB 31 pg (26-34) MEAN CORPUSCULAR HGB CONC 34 g/dL (31-37) RED CELL DISTRIBUTION WIDTH 12.3 % (11.6-14.8) PLATELET COUNT 197 K/uL (150-400) NEUTROPHIL % 81.0 H % (50-75) LYMPH % 13.0 L % (25-40) MONO % 5.3 % (3-14) EOSINOPHIL % 0.4 % (0-4) BASOPHIL % 0.3 % (0-2) Lipase: (CONNOR: 11/18/2016 18:40) ( [facility] [place] 11/18/2016 19:13) Final results Test Result Flag Units (Reference) LIPASE 158 U/L (73-393) CMP: (CONNOR: 11/18/2016 18:40) ( [facility] [place] 11/18/2016 19:20) Final results Test Result Flag Units (Reference) GLUCOSE 130 H mg/dL (70-110) BUN 11 mg/dL (7-18) CREATININE 0.9 mg/dL (0.6-1.3) Estimated GFR >60 mL/min Estimated GFR- >60 mL/min Note: Persistent reduction over 3 months in eGFR<60 mL/min/1.73 m2 defines CKD. Patients with eGFR values>=60 mL/min/1.73 m2 may also have CKD if evidence ofpersistent proteinuria. Additional information may be foundat www.kidney.org. SODIUM 138 mmol/L (136-145) POTASSIUM 3.1 L mmol/L (3.5-5.1) CHLORIDE 99 mmol/L (98-107) CARBON DIOXIDE 26 mmol/L (21-32) CALCIUM 8.5 mg/dL (8.5-10.1) TOTAL PROTEIN 7.1 g/dL (6.4-8.2) ALBUMIN 4.0 g/dL (3.3-5.0) BILIRUBIN, TOTAL 2.3 H mg/dL (0.0-1.0) ALKALINE PHOSPHATASE 55 U/L (46-116) AST (SGOT) 49 H U/L (15-37) ALT (SGPT) 84 H U/L (12-78) . PROGRESS AND PROCEDURES Course of Care: Patient with recent surgery. Will evaluate for CT and possible complications. Patient decline pain meds. Nausea medication offered. Work up pending. Patient with persistent nausea. Different nausea meds ordered. Offered pain medications again which patient accepted. CT scan results returned. Please see attached dictation by radiology. NO acute findings concerning for complication of surgery. Nausea improved. Patient much more comfortable. Offered monitoring patient in the hospital given symptoms and somewhat difficulty in controlling nausea. Elected to return home. Patient has sig other that can help him and appears reliable. They understand to return for any concerns. Discussed with patient his work up in the ED including diagnosis, home care, follow up, and return precautions. All questions answered. Patient expressed understanding of these instructions and was agreeable to them. Disposition: Discharged. Condition: good. CLINICAL IMPRESSION 11/18/2016 20:30 BP: 202/98. HR: 57. O2 saturation: 98%. Pain level now: 3/10. Moderate nausea with vomiting (acute). Wound check (acute). Hypertensive. Oxygen saturation normal. Essential hypertension. Hypokalemia (acute). INSTRUCTIONS Warnings: GENERAL WARNINGS: Return or contact your physician immediately if your condition worsens or changes unexpectedly, if not improving as expected, or if other problems arise. SPECIFICALLY, return if you develop pain, fever, vomiting, the inability to keep fluids down, blood in vomitus, blood in diarrhea, fainting or lightheadedness. Your Current Medications: CONTINUE TAKING THE FOLLOWING MEDICATIONS: Vicodin Oral. Prescription Medications: Zofran (orally disintegrating tablets) 4 mg: take 1 orally every 8 hours as needed for nausea and vomiting. Dispense ten (10). No refill. Substitution is permissible. Pepcid 20 mg: take 1 orally every 12 hours for 10 days as needed for indigestion, upset stomach or heartburn. Dispense twenty (20). No refills. Substitution is permissible. Reglan 10 mg tablets: take 1 orally every 8 hours as needed for nausea, vomiting or indigestion. Dispense twenty (20). No refills. Substitution is permissible. Potassium Chloride 20 mEq: take 1 orally every 12 hours - Dispense thirty (30) No refills. Follow-up: Return to the emergency department as needed. Follow up with your doctor as scheduled. Screening today revealed the patient's blood pressure to be in the hypertensive range. The patient should follow up with a primary care provider for blood pressure management. Understanding of the discharge instructions verbalized by patient. (Electronically signed by Fernando Shah Dr. 11/18/2016 21:55)
--- NOTE | 2016-11-18 21:08 | ED ORDER SUMMARY ---
..... Patient: BRIANNA NEAL OrderSheet [facility] VisitID: [id number] [place] [address] 46y, M Registration Date/Time: 11/18/2016 ORDER SHEET Weight: 85.2 kg (stated) Allergies: None GENERAL ORDERS: CBC w Diff Urgent (18:29 11/18/2016 KKnebel R.N. per protocol) (Ack 18:33 KHoerner) (18:44 KKnebel R.N.) CMP Urgent (18:29 11/18/2016 KKnebel R.N. per protocol) (Ack 18:33 KHoerner) (18:44 KKnebel R.N.) UA-Culture if indicated Urgent (18:29 11/18/2016 KKnebel R.N. per protocol) (Ack 18:33 KHoerner) (19:04 KKnebel R.N.) Vitals (18:29 11/18/2016 KKnebel R.N. per protocol) (18:44 KKnebel R.N.) NPO (18:29 11/18/2016 KKnebel R.N. per protocol) (18:44 KKnebel R.N.) Lipase Urgent (18:33 11/18/2016 Mulugeta White) (Ack 18:34 KHoerner) (18:44 KKnebel R.N.) CT Abd/Pel w Cont (No) (N/A) Urgent (18:46 11/18/2016 Mulugeta White) (Ack 18:50 AGUILAoecasandraner) (19:40 MCampbell) MEDICATION ORDERS: GI Cocktail WHITE PO 30 mL (NOW) (20:27 11/18/2016 Mulugeta White) (Ack 20:55 JQuiveluis R.N.) Pepcid PO 20 mg (NOW) (21:09 11/18/2016 Mulugeta White) (21:36 KKnebel R.N.) Potassium Chloride PO 20 meq (NOW) (21:09 11/18/2016 Mulugeta White) (21:36 KKnebel R.N.) IV FLUIDS: IV NS with Normal Saline 1 Liter: initial bolus 1000 mL (1000 mL/hr), then 1000 mL/hr for X1 (NOW) (18:28 11/18/2016 KKnebel R.N. per protocol) (18:44 KKnebel R.N.) Ondansetron IV 4 mg (NOW) (18:29 11/18/2016 KKnebel R.N. per protocol) (18:44 KKnebel R.N.) IV Saline Lock (18:29 11/18/2016 KKnebel R.N. per protocol) (18:43 KKnebel R.N.) Reglan IV 10 mg (NOW) (18:58 11/18/2016 Mulugeta White) (19:04 KKnebel R.N.) Zofran IV 4 mg (NOW) (20:27 11/18/2016 Mulugeta White) (20:31 KKnebel R.N.) Morphine IV 4 mg (back logged for about 20:20) (20:27 11/18/2016 Mulugeta White) (20:32 MONIQUEnebel R.N.) Azithromycin IV 500 mg/250 mL (NOW) (21:11/18/2016 Mulugeta White) (Cancelled: Other21:02 Mulugeta White) Ceftriaxone IV 2 gm/50mL (NOW) (21:11/18/2016 Mulugeta White) (Cancelled: Other21:02 Mulugeta White) ORDER SHEET NOTES: [Electronically signed by Fernando Shah Dr. (21:55 11/18/2016)] [Electronically signed by Xochilt Johnson R.N. (23:47 11/18/2016)] [Electronically locked/signed by Xochilt Johnson R.N. (23:47 11/18/2016)]
--- NOTE | 2016-11-18 21:08 | ED NURSING NOTES ---
Clinical Report - Nurses [facility] [address] [place] [address] 11/18/2016 18:15 Patient: BRIANNA NEAL TRIAGE Triage time 18:20 Nov 18 2016. Chief Complaint: NAUSEA and VOMITING. Alert. No acute distress. --18:32 Xochilt Johnson R.N. 18:29 11/18/16. BP: 173/108. HR: 62. RR: 16. O2 saturation: 100%. Temp: 97.9 F. Pain level now: 05/24. --18:32 Xochilt Johnson R.N. Weight: 85.2 kg stated. Height/Length: 67 inches Per Patient. BMI: 29.4. --18:31 Xochilt Johnson R.N. Medications Vicodin Oral. --18:30 Xochilt Johnson R.N. Allergies None. --18:30 Xochilt Johnson R.N. History Arrived by private vehicle. Historian: patient. Accompanied by family. This started just prior to arrival. He has had constipation. Treatment [employer]: None. PAST MEDICAL HX: Immunizations: up-to-date. SOCIAL HX: Current every day light tobacco smoker (cigarette)- less than 1/2 a pack per day. Alcohol use; consumes beer weekly. History of drug use: marijuana. No recent travel. No infectious disease exposure. No known contact with a sick individual. SELF HARM ASSESSMENT: A self harm assessment was performed. The patient answered "no" to the question "Do you have thoughts of harming or killing yourself?" and "Have you recently had thoughts about harming or killing others?". FALL RISK ASSESSMENT: Fall risk assessment completed. No fall risk identified. NUTRITIONAL RISK ASSESSMENT: The nutritional risk assessment revealed no deficiencies. FUNCTIONAL ASSESSMENT: Functional assessment: no impairments noted. LEARNING NEEDS ASSESSMENT: The learning needs assessment revealed no barriers. ABUSE ASSESSMENT: Abuse assessment: The patient was asked "Do you feel safe in your home?". SKIN INTEGRITY ASSESSMENT: Skin integrity risk assessment completed. No skin integrity risk identified. --18:32 Xochilt Johnson R.N. PROBLEMS: Cholecystitis. Seasonal allergic rhinitis. --18:30 Xochilt Johnson R.N. ADDITIONAL SURGERIES: Tonsillectomy. --18:30 Xochilt Johnson R.N. Cholecystectomy. Vasectomy. --18:31 Xochilt Johnson R.N. Interventions ID band on patient. To room. --18:32 Xochilt Johnson R.N. PHYSICAL ASSESSMENT Ambulatory to room. GENERAL / NEURO / PSYCH: Alert. Oriented X 4. Appears in no acute distress. RESPIRATORY: Respirations not labored. CVS: Capillary refill less than 2 seconds. GI / : The patient has had nausea. Emesis noted. Abdominal tenderness. Diminished bowel sounds. SKIN: Skin is warm and dry. --18:34 Xochilt Johnson R.N. NURSING PROGRESS NOTES Pulse oximeter and NIBP monitor placed on patient; monitor alarms on. Patient gowned. Head of bed elevated. Patient identifiers checked. Call light placed in reach. Bed placed in lowest position. Brakes of bed on. --18:34 Xochilt Johnson R.N. 18:43 11/18/2016 Site #1 started via IV in the right antecubital space with an 20g angiocath, with aseptic technique and good blood return; one attempt. Blood drawn: rainbow set. Labeled in the presence of the patient and sent to the lab. Saline lock flushed. --18:43 Xochilt Johnson R.N. 18:44 11/18/2016 Started bag #1 1000 mL IV Fluids IV NS (Saline); bolus of 1000 mL over 1 hour(s) via site #1. Allergies verified and confirmed 5 rights. IV patency established. IV site checked: no pain, redness, or swelling. IV flushed thoroughly pre- and post-medication administration. --18:44 Xochilt Johnson R.N. 18:44 11/18/2016 Ondansetron (Ondansetron HCl) IVP 4 mg given over 2 minute(s) via site #1. Allergies verified and confirmed 5 rights. IV patency established. IV site checked: no pain, redness, or swelling. IV flushed thoroughly pre- and post-medication administration. IVP given by RN. --18:44 Xochilt Johnson R.N. 19:04 11/18/2016 Reglan (Metoclopramide HCl) IVP 10 mg given over 2 minute(s) via site #1. Allergies verified and confirmed 5 rights. IV patency established. IV site checked: no pain, redness, or swelling. IV flushed thoroughly pre- and post-medication administration. IVP given by RN. --19:04 Xochilt Johnson R.N. Patient transported to CT by stretcher with tech. (:Nov 18 2016). --19:25 Xochilt Johnson R.N. Patient returned from CT by stretcher with tech. (:Nov 18 2016). --19:39 Xochilt Johnson R.N. 19:29 11/18/16. BP: 179/112. HR: 60. O2 saturation: 99%. --20:30 Xochilt Johnson R.N. 19:30 11/18/16. --20:30 Xochilt Johnson R.N. ED physician notified about patient's status. --20:31 Xochilt Johnson R.N. 20:30 11/18/16. BP: 202/98. HR: 57. O2 saturation: 98%. Pain level now: 3/10. --20:31 Xochilt Johnson R.N. 20:31 11/18/2016 Zofran (Ondansetron HCl) IVP 4 mg given over 2 minute(s) via site #1. Allergies verified and confirmed 5 rights. IV patency established. IV site checked: no pain, redness, or swelling. IV flushed thoroughly pre- and post-medication administration. IVP given by RN. --20:31 Xochilt Johnson R.N. 20:32 11/18/2016 Morphine IVP 4 mg given over 2 minute(s) via site #1. Allergies verified, confirmed 5 rights and sedative warning given to the patient and patient's family. IV patency established. IV site checked: no pain, redness, or swelling. IV flushed thoroughly pre- and post-medication administration. IVP given by RN. --20:32 Xochilt Johnson R.N. 20:55 Patient reports still felling nauseated. --20:56 Dougie Fuentes R.N. 21:31 11/18/2016 Pepcid (Famotidine) PO 20 mg given. Allergies verified and confirmed 5 rights. --21:36 Xochilt Johnson R.N. 21:31 11/18/2016 Potassium Chloride (Potassium Chloride ER) PO Tablets 20 meq given. Allergies verified and confirmed 5 rights. --21:36 Xochilt Johnson R.N. DISPOSITION / DISCHARGE Departure time: 21:38 Nov 18 2016. Condition at departure: improved. No learning barriers present. Discharge instructions provided and reviewed with the patient. Reviewed medication(s) side effects, precautions, dosing and course information. Prescription(s) given to the patient. Reviewed referral to a primary care physician for followup. Patient verbalized understanding. Written instructions provided in Frisian. The patient was discharged home and accompanied by spouse. He left the Emergency Department in a wheelchair and via private vehicle. Spouse driving. FALL RISK ASSESSMENT: Fall risk assessment completed. No fall risk identified. --21:38 Xochilt Johnson R.N. 21:37 11/18/16. BP: 182/107. HR: 86. RR: 16. O2 saturation: 98%. Pain level now: 0/10. --21:38 Xochilt Johnson R.N. Locked/Released at 11/18/2016 23:47 by Xochilt Johnson R.N.
--- NOTE | 2016-11-18 23:48 | ED MED RECONCILIATION SUMMARY ---
Patient: BRIANNA NEAL Medication Reconciliation Report [facility] VisitID: [id number] [address] [place] [address] 46y, M Registration Date/Time: 11/18/2016 Weight: 85.2 kg Height/Length: 67 in. BMI: 29.4 ALLERGIES: None The patient's Home Medications are listed below: CONTINUE TAKING THE FOLLOWING MEDICATIONS: Vicodin Oral The source(s) of the original Home Medication information: Not obtained. The following Medications were given to the patient in the Emergency Department: IV NS IV Fluids bolus 1000 mL over 1 hour(s), administered: 11/18/2016 6:44:00 PM Ondansetron [IVP] IVP 4 mg, administered: 11/18/2016 6:44:00 PM Reglan [IVP] IVP 10 mg, administered: 11/18/2016 7:04:00 PM Zofran [IVP] IVP 4 mg, administered: 11/18/2016 8:31:00 PM Morphine [IVP] IVP 4 mg, administered: 11/18/2016 8:32:00 PM Pepcid [PO] PO 20 mg, administered: 11/18/2016 9:31:00 PM Potassium Chloride [PO] PO 20 meq, administered: 11/18/2016 9:31:00 PM The following Medications were prescribed to the patient: Zofran (orally disintegrating tablets) 4 mg: take 1 orally every 8 hours as needed for nausea and vomiting. Dispense ten (10). No refill. Substitution is permissible. -- Fernando Shah Dr. Pepcid 20 mg: take 1 orally every 12 hours for 10 days as needed for indigestion, upset stomach or heartburn. Dispense twenty (20). No refills. Substitution is permissible. -- Fernando Shah Dr. Reglan 10 mg tablets: take 1 orally every 8 hours as needed for nausea, vomiting or indigestion. Dispense twenty (20). No refills. Substitution is permissible. -- Fernando Shah Dr. Potassium Chloride 20 mEq: take 1 orally every 12 hours - Dispense thirty (30) No refills. -- Fernando Shah Dr.
--- NOTE | 2016-11-18 23:48 | ED MED RECONCILIATION SUMMARY ---
Patient: BRIANNA NEAL Medication Reconciliation Report [facility] VisitID: [id number] [address] [place] [address] 46y, M Registration Date/Time: 11/18/2016 Weight: 85.2 kg Height/Length: 67 in. BMI: 29.4 ALLERGIES: None The patient's Home Medications are listed below: CONTINUE TAKING THE FOLLOWING MEDICATIONS: Vicodin Oral The source(s) of the original Home Medication information: Not obtained. The following Medications were given to the patient in the Emergency Department: IV NS IV Fluids bolus 1000 mL over 1 hour(s), administered: 11/18/2016 6:44:00 PM Ondansetron [IVP] IVP 4 mg, administered: 11/18/2016 6:44:00 PM Reglan [IVP] IVP 10 mg, administered: 11/18/2016 7:04:00 PM Zofran [IVP] IVP 4 mg, administered: 11/18/2016 8:31:00 PM Morphine [IVP] IVP 4 mg, administered: 11/18/2016 8:32:00 PM Pepcid [PO] PO 20 mg, administered: 11/18/2016 9:31:00 PM Potassium Chloride [PO] PO 20 meq, administered: 11/18/2016 9:31:00 PM The following Medications were prescribed to the patient: Zofran (orally disintegrating tablets) 4 mg: take 1 orally every 8 hours as needed for nausea and vomiting. Dispense ten (10). No refill. Substitution is permissible. -- Fernando Shah Dr. Pepcid 20 mg: take 1 orally every 12 hours for 10 days as needed for indigestion, upset stomach or heartburn. Dispense twenty (20). No refills. Substitution is permissible. -- Fernando Shah Dr. Reglan 10 mg tablets: take 1 orally every 8 hours as needed for nausea, vomiting or indigestion. Dispense twenty (20). No refills. Substitution is permissible. -- Fernando Shah Dr. Potassium Chloride 20 mEq: take 1 orally every 12 hours - Dispense thirty (30) No refills. -- Fernando Shah Dr.
--- NOTE | 2016-11-18 23:48 | ED DISCHARGE INSTRUCTIONS ---
Patient: BRIANNA NEAL General Instructions [facility] VisitID: [id number] [place] [address] 46y, M Registration Date/Time: 11/18/2016 11/18/2016 20:30 BP: 202/98. HR: 57. O2 saturation: 98%. Pain level now: 3/10. Moderate nausea with vomiting (acute). Wound check (acute). Hypertensive. Oxygen saturation normal. Essential hypertension. Hypokalemia (acute). INSTRUCTIONS Warnings: GENERAL WARNINGS: Return or contact your physician immediately if your condition worsens or changes unexpectedly, if not improving as expected, or if other problems arise. SPECIFICALLY, return if you develop pain, fever, vomiting, the inability to keep fluids down, blood in vomitus, blood in diarrhea, fainting or lightheadedness. Your Current Medications: CONTINUE TAKING THE FOLLOWING MEDICATIONS: Vicodin Oral. Prescription Medications: Zofran (orally disintegrating tablets) 4 mg: take 1 orally every 8 hours as needed for nausea and vomiting. Dispense ten (10). No refill. Substitution is permissible. Pepcid 20 mg: take 1 orally every 12 hours for 10 days as needed for indigestion, upset stomach or heartburn. Dispense twenty (20). No refills. Substitution is permissible. Reglan 10 mg tablets: take 1 orally every 8 hours as needed for nausea, vomiting or indigestion. Dispense twenty (20). No refills. Substitution is permissible. Potassium Chloride 20 mEq: take 1 orally every 12 hours - Dispense thirty (30) No refills. Follow-up: Return to the emergency department as needed. Follow up with your doctor as scheduled. Screening today revealed the patient's blood pressure to be in the hypertensive range. The patient should follow up with a primary care provider for blood pressure management. Understanding of the discharge instructions verbalized by patient. ADDITIONAL INFORMATION Wound Check, No Infection Your laceration is healing as expected. There is no infection. Home care The following guidelines will help you care for your wound at home: Keep the wound clean and dry. If you were given a bandage, you may change it daily as follows: After removing the bandage, wash the area with soap and water. Use a wet cotton swab to loosen and remove any blood or crust that forms. After cleaning, apply a thin layer of antibiotic ointment. This will keep the wound clean and make it easier to remove the stitches. Reapply a fresh bandage. You may remove the bandage to shower as usual after the first 24 hours, but do not soak the area in water (no swimming) until the sutures are removed. If surgical tape was used, keep the area clean and dry. If it becomes wet, blot it dry with a towel. Follow-up care If sutures or aysha are in place, it is important to keep your appointment for removal. If they are left in place too long permanent lantigua may remain. If surgical tape closures were applied, you may remove them yourself if they have not fallen of by 10 days after the injury. When to seek medical care Get prompt medical attention if any of the following occur: Increasing pain in the wound Redness, swelling, or pus coming from the wound Fever of 100.4F (38C) or higher, or as directed by your health care provider If sutures or aysha come apart or fall out before your next appointment If the surgical tape closures fall off within seven days, or the wound edges re-open Hypokalemia Hypokalemia means a low level of potassium in the blood. This most often occurs in patients who take diuretics (water pills). It can also occur due to severe vomiting or diarrhea. A mild case usually causes no symptoms. It is only found with blood testing. More severe potassium loss causes generalized weakness, muscle or abdominal cramping, heart palpitations (rapid or irregular heartbeats) and low blood pressure. Home Care: 1) Take any potassium supplements prescribed. 2) Eat foods rich in potassium. The highest amount is found in artichoke, baked potatoes, spinach, cantaloupe, honeydew melon, cod, halibut, salmon, and scallops. White, red, or price beans are also very good sources. A modest amount is found in orange juice, bananas, carrots, and tomato juice. 3) Certain types of diuretics (water pills), such as Lasix (furosemide), require that you take potassium supplements for as long as you take the diuretic pills. If you are taking a diuretic, discuss the need for potassium supplements with your doctor. Follow Up with your doctor for a repeat blood test within the next week or as advised by our staff. Get Prompt Medical Attention if any of the following occur: -- Increased weakness -- Feeling dizzy -- Irregular heartbeat, extra beats or very fast heart rate -- Fainting spell Ondansetron Oral disintegrating tablet What is this medicine? ONDANSETRON (on HIEU se narcisa) is used to treat nausea and vomiting caused by chemotherapy. It is also used to prevent or treat nausea and vomiting after surgery. How should I use this medicine? These tablets are made to dissolve in the mouth. Do not try to push the tablet through the foil backing. With dry hands, peel away the foil backing and gently remove the tablet. Place the tablet in the mouth and allow it to dissolve, then swallow. While you may take these tablets with water, it is not necessary to do so. Talk to your decorating kiln operator regarding the use of this medicine in children. Special care may be needed. What side effects may I notice from receiving this medicine? Side effects that you should report to your doctor or health child care center administrator as soon as possible: allergic reactions like skin rash, itching or hives, swelling of the face, lips, or tongue breathing problems dizziness fast or irregular heartbeat feeling faint or lightheaded, falls fever and chills swelling of the hands and feet tightness in the chest Side effects that usually do not require medical attention (report to your doctor or health child care center administrator if they continue or are bothersome): constipation or diarrhea headache What may interact with this medicine? Do not take this medicine with any of the following medications: -apomorphine -cisapride -dofetilide -dronedarone -pimozide -thioridazine -ziprasidone This medicine may also interact with the following medications: -carbamazepine -phenytoin -rifampicin -tramadol -other medicines that prolong the QT interval (cause an abnormal heart rhythm) What if I miss a dose? If you miss a dose, take it as soon as you can. If it is almost time for your next dose, take only that dose. Do not take double or extra doses. Where should I keep my medicine? Keep out of the reach of children. Store between 2 and 30 degrees C (36 and 86 degrees F). Throw away any unused medicine after the expiration date. What should I tell my health care provider before I take this medicine? They need to know if you have any of these conditions: heart disease history of irregular heartbeat liver disease low levels of magnesium or potassium in the blood an unusual or allergic reaction to ondansetron, granisetron, other medicines, foods, dyes, or preservatives or trying to get breast-feeding What should I watch for while using this medicine? Check with your doctor or health child care center administrator as soon as you can if you have any sign of an allergic reaction. Famotidine Oral tablet What is this medicine? FAMOTIDINE (fa MEHRAN fitzpatrick) is a type of antihistamine that blocks the release of stomach acid. It is used to treat stomach or intestinal ulcers. It can also relieve heartburn from acid reflux. How should I use this medicine? Take this medicine by mouth with a glass of water. Follow the directions on the prescription label. If you only take this medicine once a day, take it at bedtime. Take your doses at regular intervals. Do not take your medicine more often than directed. Talk to your decorating kiln operator regarding the use of this medicine in children. Special care may be needed. What side effects may I notice from receiving this medicine? Side effects that you should report to your doctor or health child care center administrator as soon as possible: agitation, nervousness confusion hallucinations skin rash, itching Side effects that usually do not require medical attention (report to your doctor or health child care center administrator if they continue or are bothersome): constipation diarrhea dizziness headache What may interact with this medicine? delavirdine itraconazole ketoconazole What if I miss a dose? If you miss a dose, take it as soon as you can. If it is almost time for your next dose, take only that dose. Do not take double or extra doses. Where should I keep my medicine? Keep out of the reach of children. Store at room temperature between 15 and 30 degrees C (59 and 86 degrees F). Do not freeze. Throw away any unused medicine after the expiration date. What should I tell my health care provider before I take this medicine? They need to know if you have any of these conditions: kidney or liver disease trouble swallowing an unusual or allergic reaction to famotidine, other medicines, foods, dyes, or preservatives or trying to get breast-feeding What should I watch for while using this medicine? Tell your doctor or health child care center administrator if your condition does not start to get better or if it gets worse. Finish the full course of tablets prescribed, even if you feel better. Do not take with aspirin, ibuprofen or other antiinflammatory medicines. These can make your condition worse. Do not smoke cigarettes or drink alcohol. These cause irritation in your stomach and can increase the time it will take for ulcers to heal. If you get black, tarry stools or vomit up what looks like coffee grounds, call your doctor or health child care center administrator at once. You may have a bleeding ulcer. Metoclopramide Hydrochloride Oral tablet What is this medicine? METOCLOPRAMIDE (met oh kloe PRA mide) is used to treat the symptoms of gastroesophageal reflux disease (GERD) like heartburn. It is also used to treat people with slow emptying of the stomach and intestinal tract. How should I use this medicine? Take this medicine by mouth with a glass of water. Follow the directions on the prescription label. Take this medicine on an empty stomach, about 30 minutes before eating. Take your doses at regular intervals. Do not take your medicine more often than directed. Do not stop taking except on the advice of your doctor or health child care center administrator. A special MedGuide will be given to you by the pharmacist with each prescription and refill. Be sure to read this information carefully each time. Talk to your decorating kiln operator regarding the use of this medicine in children. Special care may be needed. What side effects may I notice from receiving this medicine? Side effects that you should report to your doctor or health child care center administrator as soon as possible: allergic reactions like skin rash, itching or hives, swelling of the face, lips, or tongue abnormal production of milk in females breast enlargement in both males and females change in the way you walk difficulty moving, speaking or swallowing drooling, lip smacking, or rapid movements of the tongue excessive sweating fever involuntary or uncontrollable movements of the eyes, head, arms and legs irregular heartbeat or palpitations muscle twitches and spasms unusually weak or tired Side effects that usually do not require medical attention (report to your doctor or health child care center administrator if they continue or are bothersome): change in sex drive or performance depressed mood diarrhea difficulty sleeping headache menstrual changes restless or nervous What may interact with this medicine? acetaminophen cyclosporine digoxin medicines for blood pressure medicines for diabetes, including insulin medicines for hay fever and other allergies medicines for depression, especially an Monoamine Oxidase Inhibitor (MAOI) medicines for Parkinson's disease, like levodopa medicines for sleep or for pain tetracycline What if I miss a dose? If you miss a dose, take it as soon as you can. If it is almost time for your next dose, take only that dose. Do not take double or extra doses. Where should I keep my medicine? Keep out of the reach of children. Store at room temperature between 20 and 25 degrees C (68 and 77 degrees F). Protect from light. Keep container tightly closed. Throw away any unused medicine after the expiration date. What should I tell my health care provider before I take this medicine? They need to know if you have any of these conditions: breast cancer depression diabetes heart failure high blood pressure kidney disease liver disease Parkinson's disease or a movement disorder pheochromocytoma seizures stomach obstruction, bleeding, or perforation an unusual or allergic reaction to metoclopramide, procainamide, sulfites, other medicines, foods, dyes, or preservatives or trying to get breast-feeding What should I watch for while using this medicine? It may take a few weeks for your stomach condition to start to get better. However, do not take this medicine for longer than 12 weeks. The longer you take this medicine, and the more you take it, the greater your chances are of developing serious side effects. If you are an elderly patient, a female patient, or you have diabetes, you may be at an increased risk for side effects from this medicine. Contact your doctor immediately if you start having movements you cannot control such as lip smacking, rapid movements of the tongue, involuntary or uncontrollable movements of the eyes, head, arms and legs, or muscle twitches and spasms. Patients and their families should watch out for worsening depression or thoughts of suicide. Also watch out for any sudden or severe changes in feelings such as feeling anxious, agitated, panicky, irritable, hostile, aggressive, impulsive, severely restless, overly excited and hyperactive, or not being able to sleep. If this happens, especially at the beginning of treatment or after a change in dose, call your doctor. Do not treat yourself for high fever. Ask your doctor or health child care center administrator for advice. You may get drowsy or dizzy. Do not drive, use machinery, or do anything that needs mental alertness until you know how this drug affects you. Do not stand or sit up quickly, especially if you are an older patient. This reduces the risk of dizzy or fainting spells. Alcohol can make you more drowsy and dizzy. Avoid alcoholic drinks. You have been given the following additional information: Wound Check, Lac F/U (No Infection) Hypokalemia Ondansetron Oral disintegrating tablet Famotidine Oral tablet Metoclopramide Hydrochloride Oral tablet (Electronically signed by Fernando Shah Dr. 11/18/2016 21:55)
--- NOTE | 2016-11-18 23:48 | ED MAR SUMMARY ---
..... Medication Administration Record [facility] [address] [facility] [place] [address] Patient: BRIANNA NEAL Visit ID: [id number] 46y, M Weight: 85.2 kg Height/Length: 67 in BMI: 29.4 ALLERGIES: None Start 18:44 11/18/2016 Xochilt Johnson R.N. Medication Administered: IV NS (SALINE), Dose: IV Fluids, Bolus: 1000 mL over 1 hour(s), Dispensed: 1000 mL bag, Site: #1 right AC. Medication Ordered: IV NS with Normal Saline 1 Liter: initial bolus 1000 mL (1000 mL/hr), then 1000 mL/hr for X1 (NOW). Given 18:44 11/18/2016 Xochilt Johnson R.N. Medication Administered: ONDANSETRON [IVP] (ONDANSETRON HCL), Dose: 4 mg IVP over 2 minute(s), Site: #1 right AC. Medication Ordered: Ondansetron IV 4 mg (NOW). Given 19:04 11/18/2016 Xochilt Johnson R.N. Medication Administered: REGLAN [IVP] (METOCLOPRAMIDE HCL), Dose: 10 mg IVP over 2 minute(s), Site: #1 right AC. Medication Ordered: Reglan IV 10 mg (NOW). Given 20:31 11/18/2016 Xochilt Johnson R.N. Medication Administered: ZOFRAN [IVP] (ONDANSETRON HCL), Dose: 4 mg IVP over 2 minute(s), Site: #1 right AC. Medication Ordered: Zofran IV 4 mg (NOW). Given 20:32 11/18/2016 Xochilt Johnson R.N. Medication Administered: MORPHINE [IVP], Dose: 4 mg IVP over 2 minute(s), Site: #1 right AC. Medication Ordered: Morphine IV 4 mg (back logged for about 20:20). Given 21:31 11/18/2016 Xochilt Johnson R.N. Medication Administered: PEPCID [PO] (FAMOTIDINE), Dose: 20 mg PO. Medication Ordered: Pepcid PO 20 mg (NOW). Given 21:31 11/18/2016 Xochilt Johnson R.N. Medication Administered: POTASSIUM CHLORIDE [PO] (POTASSIUM CHLORIDE ER), Dose: 20 meq Tablets PO. Medication Ordered: Potassium Chloride PO 20 meq (NOW).
--- NOTE | 2016-11-18 23:48 | ED MAR SUMMARY ---
..... Medication Administration Record [facility] [address] [facility] [place] [address] Patient: BRIANNA NEAL Visit ID: [id number] 46y, M Weight: 85.2 kg Height/Length: 67 in BMI: 29.4 ALLERGIES: None Start 18:44 11/18/2016 Xochilt Johnson R.N. Medication Administered: IV NS (SALINE), Dose: IV Fluids, Bolus: 1000 mL over 1 hour(s), Dispensed: 1000 mL bag, Site: #1 right AC. Medication Ordered: IV NS with Normal Saline 1 Liter: initial bolus 1000 mL (1000 mL/hr), then 1000 mL/hr for X1 (NOW). Given 18:44 11/18/2016 Xochilt Johnson R.N. Medication Administered: ONDANSETRON [IVP] (ONDANSETRON HCL), Dose: 4 mg IVP over 2 minute(s), Site: #1 right AC. Medication Ordered: Ondansetron IV 4 mg (NOW). Given 19:04 11/18/2016 Xochilt Johnson R.N. Medication Administered: REGLAN [IVP] (METOCLOPRAMIDE HCL), Dose: 10 mg IVP over 2 minute(s), Site: #1 right AC. Medication Ordered: Reglan IV 10 mg (NOW). Given 20:31 11/18/2016 Xochilt Johnson R.N. Medication Administered: ZOFRAN [IVP] (ONDANSETRON HCL), Dose: 4 mg IVP over 2 minute(s), Site: #1 right AC. Medication Ordered: Zofran IV 4 mg (NOW). Given 20:32 11/18/2016 Xochilt Johnson R.N. Medication Administered: MORPHINE [IVP], Dose: 4 mg IVP over 2 minute(s), Site: #1 right AC. Medication Ordered: Morphine IV 4 mg (back logged for about 20:20). Given 21:31 11/18/2016 Xochilt Johnson R.N. Medication Administered: PEPCID [PO] (FAMOTIDINE), Dose: 20 mg PO. Medication Ordered: Pepcid PO 20 mg (NOW). Given 21:31 11/18/2016 Xochilt Johnson R.N. Medication Administered: POTASSIUM CHLORIDE [PO] (POTASSIUM CHLORIDE ER), Dose: 20 meq Tablets PO. Medication Ordered: Potassium Chloride PO 20 meq (NOW).
[2016-11-30] MEDS ORDERED: TYLENOL325 MG PO (21:55)
[2016-12-02] MEDS ORDERED: HYCET1 ML PO (06:47)
== END 2016-11-18 21:39 | disposition home or self-care (01) ==
LOC: ED SRH 18:15
DX: E87.6 Hypokalemia (principal); I10 Essential (primary) hypertension; R11.2 Nausea with vomiting, unspecified; Z48.815 Encounter for surgical aftercare following surgery on the digestive system
CPT/HCPCS: 90004; 90100; 92235; 95059